=== PATIENT | male | born 1950 | race Caucasian/White ===

== ENCOUNTER 2019-12-03 06:03 | Day surgery (SDC) | payer MEDICARE, BC ==
[~2019-12-03] VITALS: Ht 185.4 cm; Wt 97.7 kg
[2019-12-03] MEDS ORDERED: SODIUM CHLORIDE 0.9% 1,000 ML IV SCH (06:25)
[2019-12-03] MEDS ORDERED: ASCO500T8 PO (06:32)
[2019-12-03] MEDS ORDERED: MULT-658 PO (06:32)
[2019-12-03] MEDS ORDERED: SIMV80TA18 PO (06:32)
[2019-12-03] MEDS ORDERED: LISI5TAB7 PO (06:32)
[2019-12-03] MEDS ORDERED: ASPI-650 PO (06:32)
[2019-12-03] MEDS ORDERED: SPIR1TAB3 PO (06:32)
[2019-12-03 06:35] VITALS: BP 128/86
[2019-12-03 06:58] LABS: BASOPHILS # (AUTO) 0.03 x10^3/uL (0-0.1); BASOPHILS % (AUTO) 1 % (0-1); EOSINOPHILS # (AUTO) 0.16 x10^3/uL (0-0.4); EOSINOPHILS % (AUTO) 3 % (1-7); LYMPHOCYTES # (AUTO) 1.64 x10^3/uL (1-3.4); LYMPHOCYTES % (AUTO) 33 % (22-44); MD NO; MEAN CORPUSCULAR HEMOGLOBIN 30.1 pg (27.5-34.5); MEAN CORPUSCULAR HGB CONC 33.2 g/dL (33.2-36.2); MEAN CORPUSCULAR VOLUME 90.8 fL (81-97); MEAN PLATELET VOLUME 7.7 fL (7.4-10.4); MONOCYTES # (AUTO) 0.38 x10^3/uL (0.2-0.8); MONOCYTES % (AUTO) 8 % (2-9); NEUTROPHILS # (AUTO) 2.83 x10^3/uL (1.8-6.8); NEUTROPHILS % (AUTO) 56 % (42-75); PLATELET COUNT 317 x10^3/uL (130-400); RED BLOOD COUNT 4.93 x10^6/uL (4.38-5.82); RED CELL DISTRIBUTION WIDTH 13.4 % (9.4-14.8)
[2019-12-03 07:10] LABS: ANION GAP 7 mmol/L (5-15); CALCIUM 8.8 mg/dL (8.5-10.1); CHLORIDE 100 mmol/L (98-107); CREATININE 0.93 mg/dL (0.7-1.3)
[2019-12-03] MEDS ORDERED: MIDAZOLAM 1 MG/ML, 2ML ONE (08:15)
[2019-12-03] MEDS ORDERED: FENTANYL PF 100 MCG/2ML ONE (08:15)
[2019-12-03] MEDS ORDERED: ISOPROTERENOL 0.2MG/ML, 5ML ONE ×2 (08:16→09:10)
[2019-12-03] MEDS ORDERED: LIDOCAINE 1%, 20ML ONE (08:16)
[2019-12-03] MEDS ORDERED: SIMVASTATIN 80 MG PO SCH (21:00)
[2019-12-04] MEDS ORDERED: ASPIRIN 325 MG TABLET EC PO SCH (09:00)
[2019-12-04] MEDS ORDERED: SPIRONOLACT/HCTZ 25/25MG TABLET PO SCH (09:00)
[2019-12-04] MEDS ORDERED: ASCORBIC ACID 500 MG TABLET PO SCH (09:00)
[2019-12-04] MEDS ORDERED: MULTIVITAMIN 1 TABLET PO SCH (09:00)
[2019-12-04] MEDS ORDERED: LISINOPRIL 5 MG TABLET PO SCH (09:00)
== END 2019-12-03 14:10 | disposition home or self-care (01) ==
LOC: CACL 06:03
PROVIDERS: ATTEND Internal Medicine Cardiovascular Disease
DX: I47.1 Supraventricular tachycardia (principal); I10 Essential (primary) hypertension; E78.5 Hyperlipidemia, unspecified; Z79.82 Long term (current) use of aspirin; Z79.899 Other long term (current) drug therapy; Z87.891 Personal history of nicotine dependence
CPT/HCPCS: 36415; 71046; 80048; 85025; 93613; 93621; 93623; 93653; C1730; C1894; C2630; J2250; J3010

== ENCOUNTER → 2020-08-27 | Outpatient (CLI) | payer MEDICARE, BC ==
[~2020-08-27] MED LIST: ASCO500T8 PO; ASPI-1026 PO; LISI5TAB7 PO; MULT-658 PO; SIMV80TA18 PO; SPIR1TAB3 PO
== END | disposition home or self-care (01) ==
LOC: CFH 10:51
PROVIDERS: ATTEND Internal Medicine Cardiovascular Disease
DX: I08.8 Other rheumatic multiple valve diseases (principal)
CPT/HCPCS: 93306